=== PATIENT | female | born 1940 | race Caucasian/White ===

== ENCOUNTER → 2017-02-05 | Outpatient (CLI) | payer OTHER ==
[~2017-02-05] MED LIST: ANTIVERT PO; CELEXA20 MG PO; CIPRO PO; DULCOLAX5 MG PO; FETZIMA40 MG PO; GAVISCON1 TAB PO; LIDEX 0.05% CR15 GM TOP; LINZESS145 MCG PO; MECLIZINE HCL12.5 M2 PO; METAMUCIL; OMEPRAZOLE20 M1 PO; PERCOCET5/325 PO; PRILOSEC40 MG PO; RANITIDINE HCL150 M1 PO; SERTRALINE HCL25 M1 PO; ZANTAC150 MG PO; [UNRECOGNIZED DRUG - OTHER]
--- NOTE | ~2017-02-05 | CT2 ---
[facility] A Service of [facility] & [facility] RADIOLOGY TEXT RESULTS PATIENT: TOM DIALLO [facility] UNIT #: [id number] AGE: [address]: Nick Yañez MD SEX: F ORDER DR: [id number] [facility] [address] [place], [place] [address] [id number] O MR#: [id number] Acc #: [id number] NAME: TOM DIALLO : 1940 SEX: F STUDY DATE/TIME: 02/05/2017 14:09 UNIT: [facility] ROOM: STUDY DESCRIPTION: CT Abd and Pelv W Cont Attending Physician: Nick Yañez M.D. Referring Physician: Nick Yañez M.D. Ordering Physician: Nick Yañez M.D. Primary Care Physician: Ade Germain M.D. MEDICAL IMAGING REPORT This report is preliminary unless electronic signature is present EXAM CT scan of the abdomen and pelvis. INDICATIONS Diagnosis of bladder cancer. Constipation. No other complaints. TECHNIQUE Patient was given 100 mL of Isovue 370 and axial 5 mm images were obtained through the abdomen and pelvis. This CT exam was performed with one or more of the following radiation dose reduction techniques: automatic exposure control, adjustment of mA and/or kV according to patient size, and iterative reconstruction. FINDINGS There are 2 calcified granulomas in the left lower lobe. There is a noncalcified nodule in the right middle lobe measuring 3 mm in diameter. There is a right lower lobe pleural based mass measuring 6.3 x 4.2 x 5.2 cm. This abuts the azygoesophageal recess and spine. The liver is normal in appearance. The right adrenal gland has a large mass replacing it. That measures about 3 x 3.6 cm. Left adrenal gland is normal. The spleen and pancreas are normal. The left kidney has an exophytic lesion measuring about 19 mm in diameter. It is 60 Hounsfield units in density measurement therefore cannot be considered a simple cyst. There is simple cyst in the lower pole measure a centimeter in diameter. The aorta is normal in size. There is no adenopathy. The bowel is normal. The bladder is slightly collapsed, but no mass is visible. Uterus has been removed and there are no adnexal masses. Bones show mild degenerative changes. IMPRESSION 1. Although the history states the patient has bladder cancer, there is no definite bladder mass visible. The bladder is not significantly STS. [facility] A Service of [facility] & [facility] RADIOLOGY TEXT RESULTS PATIENT: TOM DIALLO LOCATION: [facility] : 44 UNIT #: [id number] AGE: [address]: Nick Yañez MD SEX: F ORDER DR: distended on this study, however. 2. There is a large, 5.2 x 6.3 x 4.2 cm mass in the medial right lower lobe abutting the spine and azygoesophageal recess and this is concerning for a primary lung malignancy. There is also a right adrenal mass measuring 3.5 cm in diameter, which is concerning for metastatic disease either from bladder cancer or from the lung mass. 3. There is a 3 mm nodule in the right middle lobe, which is noncalcified, which will need followup. In addition, chest CT is recommended for further evaluation of chest findings. 4. There is an indeterminant left renal lesion measuring 19 mm in diameter and 62 Hounsfield units. That is projecting off of the left kidney. Patient has a ultrasound of the kidney from 2013 and there was a lesion visible at that time in that location measuring 17 mm in diameter. It did not appear to be a simple cyst on that examination and the lack of change in the 3-year interval suggests a benign nature. Dictated by... Merlin Braun M.D. THIS IS AN ELECTRONICALLY VERIFIED REPORT Merlin Braun M.D. at 02/06/2017 3:55 PM FEI/rinku TD: 02/06/2017 13:49 JOB #: [id number] MEDICAL IMAGING REPORT Page 1 of 1 COPY
[2017-02-05 14:35] LABS: POC - CREATININE 0.77 mg/dL (0.44-1.03); POC - GFR >60.0 mL/min (>60)
== END | disposition home or self-care (01) ==
LOC: CCAT 12:01
PROVIDERS: Urology
DX: C67.5 Malignant neoplasm of bladder neck (principal); R91.8 Other nonspecific abnormal finding of lung field; E27.8 Other specified disorders of adrenal gland; R91.1 Solitary pulmonary nodule
CPT/HCPCS: 74177; 82565; Q9967